=== PATIENT | female | born 1955 | race Caucasian/White ===

== ENCOUNTER 2024-02-15 13:54 | Outpatient (RCR) | payer MEDICARE, SELFPAY ==
[2024-02-15] MEDS: RECLAST 100 IV (14:20)
[2024-02-15 14:34] VITALS: BP 149/64
== END 2024-02-15 23:59 | disposition home or self-care (01) ==
LOC: OID 13:54
PROVIDERS: ATTENDING PHYSICIAN Internal Medicine Endocrinology, Diabetes & Metabolism; FAMILY PHYSICIAN Family Medicine
DX: M81.0 Age-related osteoporosis without current pathological fracture (principal)
CPT/HCPCS: 96365; J3489